=== PATIENT | female | born 1930 | race Asian ===

== ENCOUNTER 2017-04-07 06:20 | Emergency (ER) | payer MEDICARE, OTHER ==
[~2017-04-07] VITALS: Ht 152.4 cm; Wt 59.1 kg
[~2017-04-07 06:20] MED LIST: ACET-66 PO; ALEN70TA48 PO; EZET10 PO; HYDR25TA PO; OSTEO BI-FLEX1 EACH PO; VALS80TA2 PO
[2017-04-07] MEDS ORDERED: KETOROLAC TROMETHAMINE 60 MG/2 ML VIAL IM ONE (07:45)
[2017-04-07] MEDS ORDERED: IBUPROFEN 400 MG TABLET PO ONE (08:00)
[2017-04-07 09:13] VITALS: BP 146/78
== END 2017-04-07 09:26 | disposition home or self-care (01) ==
LOC: EMS 06:21
DX: S05.10XA Contusion of eyeball and orbital tissues, unspecified eye, initial encounter (principal); M79.89 Other specified soft tissue disorders; I10 Essential (primary) hypertension; Z88.0 Allergy status to penicillin; V49.88XA Car occupant (driver) (passenger) injured in other specified transport accidents, initial encounter; Y93.89 Activity, other specified; Y92.810 Car as the place of occurrence of the external cause; Y99.8 Other external cause status
CPT/HCPCS: 70450; 99284; J1885